=== PATIENT | male | born 1990 | race Caucasian/White ===

== ENCOUNTER 2024-02-21 13:29 | Emergency (ER) | payer SELFPAY ==
[~2024-02-21] VITALS: Ht 180.3 cm; Wt 102.1 kg
[2024-02-21 13:35] VITALS: BP 122/86; PULSE 83; RESP 18; TEMP 98; O2SAT 98
[2024-02-21] MEDS ORDERED: IBUP-2213 PO (14:19)
[2024-02-21] MEDS: IBUPROFEN 800 MG TAB PO ONE (14:28)
== END 2024-02-21 14:43 | disposition home or self-care (01) ==
LOC: MED 13:29
DX: M25.561 Pain in right knee (principal); Z79.899 Other long term (current) drug therapy
CPT/HCPCS: 99282